=== PATIENT | male | born 1985 | race Hispanic/Latino ===

== ENCOUNTER 2018-03-01 14:24 | Emergency (ER) | payer SELFPAY ==
--- OUTSIDE RECORDS SUMMARY | 2018-03-01 14:26 | XMS REPORT | Encounter Summary ---
Author Author JENNIFFER Hopkins, Elin Whitfield Organization [facility] Address Unknown Phone Unavailable Care Team Providers Care Living Nurse Name Role Phone JENNIFFER Hopkins Melissa A Unavailable [facility] [id number] Conditions or Problems No information available. Medications Medication Instructions Start Date Stop Date Generic Name [facility] Provider PROAIR HFA AERS take 2 puffs by mouth BID/PRN asthma for 60 days NON KOP ALBUTEROL SULFATE AERS [id number] Elin Hopkins NP ATIVAN 1 MG TABS PRN Take 2 tablets po q 1 hr for agitation ,tremors,tachycardia(pulserate>=120) or diastolic bp>100mmHg NON KOP LORAZEPAM [id number] Elin Hopkins NP THIAMINE HCL 100 MG/ML SOLN If not able to tolerate tabs, Give 100 mg IM daily x 3 days NON-KOP THIAMINE HCL [id number] Elin Hopkins NP CHLORDIAZEPOXIDE HCL 25 MG CAPS Take 2 caps by mouth QID X 8 doses THEN 2 caps by mouth TID X 6 doses THEN 2 caps by mouth BID X 4 doses THEN 2 caps by mouth QD X 2 doses. NON-KOP CHLORDIAZEPOXIDE HCL [id number] Elin Hopkins NP THIAMINE HCL 100 MG TABS Take 1 tablet by mouth daily x 3 days NON-KOP THIAMINE HCL [id number] Elin Hopkins NP ATIVAN 2 MG/ML SOLN PRN 2 mg IM Q1 hours agitation, tremors, tachycardia (pulse rate greater than or equal to 120), or Diastolic blood pressure greater than 100mmHg X 4 days (96 hours)NONKOP LORAZEPAM [id number] Elin Hopkins NP Medications Administered No information available. Allergies, Adverse Reactions, Alerts Observed no known allergies at
--- OUTSIDE RECORDS SUMMARY | 2018-03-01 14:26 | XMS REPORT | Clinical Summary ---
Author Author [facility] Organization [facility] Address Unknown Phone Unavailable Care Team Providers Care Steam Hammer Operator Name Role Phone Asked, No Pcp PCP Unavailable Allergies No Known Allergies Current Medications No known medications Active Problems Not on file Encounters Date Type Specialty Care Team Description 12/26/2017 Emergency Emergency Medicine Kirt Suero Visit for wound check MD Reyes (Primary Dx) 12/21/2017 Emergency Emergency Medicine Luis Miguel Gonsalez, Encounter for post DO surgical wound check (Primary Dx); Burn after 02/28/2017 Social History Tobacco Use Types Packs/Day Years Used Date Current Every Day Smoker Cigarettes 0.5 Smokeless Tobacco: Never Used Alcohol Use Drinks/Week oz/Week Comments Yes Sex Assigned at Date Recorded Not on file Last Filed Vital Signs Vital Sign Reading Time Taken Blood Pressure 136/82 12/26/2017 1:06 PM CDT Pulse 92 12/26/2017 1:06 PM CDT Temperature 37.1 C (98.8 F) 12/26/2017 1:06 PM CDT Respiratory Rate 16 12/26/2017 1:06 PM CDT Oxygen Saturation 99% 12/26/2017 1:06 PM CDT Inhaled Oxygen - - Concentration Weight 63.5 kg (140 lb) 12/26/2017 11:05 AM CDT Height 172.7 cm (5' 8") 12/26/2017 11:05 AM CDT Body Mass Index 21.29 12/26/2017 11:05 AM CDT Plan of Treatment Not on file Results Not on fileafter 02/28/2017
--- OUTSIDE RECORDS SUMMARY | 2018-03-01 14:26 | XMS REPORT | Encounter Summary ---
Author Author ANNIE Richard Irene V Organization [facility] Address Unknown Phone Unavailable Care Team Providers Care Information Technology Analyst Name Role Phone JENNIFFER Hopkins, Elin Whitfield Unavailable [facility] 545314 Conditions or Problems No information available. Medications Medication Instructions Start Date Stop Date Generic Name [facility] Provider PROAIR HFA AERS take 2 puffs by mouth BID/PRN asthma for 60 days NON KOP ALBUTEROL SULFATE AERS [id number] Elin Hopkins NP ATIVAN 1 MG TABS PRN Take 2 tablets po q 1 hr for agitation ,tremors,tachycardia(pulserate>=120) or diastolic bp>100mmHg NON KOP LORAZEPAM [id number] Elin Hopkins NP THIAMINE HCL 100 MG/ML SOLN If not able to tolerate tabs, Give 100 mg IM daily x 3 days NON-KOP THIAMINE HCL [id number] Elin Hopkins NP CHLORDIAZEPOXIDE HCL 25 MG CAPS Take 2 caps by mouth QID X 8 doses THEN 2 caps by mouth TID X 6 doses THEN 2 caps by mouth BID X 4 doses THEN 2 caps by mouth QD X 2 doses. NON-KOP CHLORDIAZEPOXIDE HCL [id number] Elin Hopkins NP THIAMINE HCL 100 MG TABS Take 1 tablet by mouth daily x 3 days NON-KOP THIAMINE HCL [id number] Elin Hopkins NP ATIVAN 2 MG/ML SOLN PRN 2 mg IM Q1 hours agitation, tremors, tachycardia (pulse rate greater than or equal to 120), or Diastolic blood pressure greater than 100mmHg X 4 days (96 hours)NONKOP LORAZEPAM [id number] Elin Hopkins NP Medications Administered No information available. Allergies, Adverse Reactions, Alerts Observed no known allergies at
--- OUTSIDE RECORDS SUMMARY | 2018-03-01 14:27 | XMS REPORT ---
[facility] Address Unknown Phone Unavailable Care Team Providers Care Dye House Hand Name Role Phone Unavailable Unavailable Payers Payer Name Policy Type Policy Number Effective Date Expiration Date Problems This patient has no known problems. Allergies, Adverse Reactions, Alerts Allergy Name Allergy Type Status Severity Reaction(s) Onset Date Inactive Date Treating Clinician Comments No Known Allergies DA Active U 2018-01-12 00:00:00 No Known Allergies DA Active U 2018-01-08 00:00:00 No Known Allergies DA Active U 2018-01-03 00:00:00 No Known Allergies DA Active U 2017-12-24 00:00:00 No Known Allergies DA Active U 2016-04-09 00:00:00 Medications This patient has no known medications. Encounters Start Date/Time End Date/Time Encounter Type Admission Type Attending [facility] Care Facility Care Department Encounter ID 2017-08-30 00:00:00 2017-11-25 00:00:00 Outpatient [facility] [id number] 2017-11-03 12:21:01 2017-11-03 12:21:01 Outpatient [facility] [id number] 2017-08-27 00:00:00 2017-08-28 00:00:00 Outpatient [facility] [id number] 2017-07-28 00:00:00 2017-07-31 00:00:00 Outpatient [facility] [id number] 2017-03-01 00:00:00 2017-03-02 00:00:00 Outpatient [facility] [id number] 2017-02-22 00:00:00 2017-02-23 00:00:00 [facility] [id number] 2016-10-16 00:00:00 2017-02-15 00:00:00 [facility] [id number] 2016-10-07 00:00:00 2016-10-11 00:00:00 [facility] [id number] 2016-09-30 00:00:00 2016-09-30 00:00:00 [facility] [id number] 2016-09-19 00:00:00 2016-09-26 00:00:00 [facility] [id number] 2016-09-14 00:00:00 2016-09-16 00:00:00 [facility] [id number] 2016-08-27 00:00:00 2016-09-08 00:00:00 [facility] [id number]
--- OUTSIDE RECORDS SUMMARY | 2018-03-01 14:27 | XMS REPORT | Encounter Summary ---
Author Author ANNIE Esquivel, [employer] Organization [facility] Address Unknown Phone Unavailable Care Team Providers Care Methods Specialist Engineer Name Role Phone Onemu, INSTANT PRINT OPERATOR, Marisabel O Unavailable [facility] [id number] Conditions or Problems No information available. Medications Medication Instructions Start Date Stop Date Generic Name [facility] Provider IBUPROFEN 800 MG TABS Take 1 tablet by mouth twice a day for 30 days. N-KOP IBUPROFEN [id number] Marisabel O Onemu, INSTANT PRINT OPERATOR CHLORDIAZEPOXIDE HCL 25 MG CAPS Take 1 capsule by mouth twice daily X 2 days THEN 1 capsule by mouth once daily X 3 days CHLORDIAZEPOXIDE HCL [id number] Marisabel O Onemu, INSTANT PRINT OPERATOR LOPERAMIDE HCL 2 MG CAPS Take 2 capsules (4mg) by mouth twice daily X 3 days NON-KOP LOPERAMIDE HCL [id number] Marisabel O Onemu, INSTANT PRINT OPERATOR DILANTIN 100 MG CAPS Take 3 capsules by mouth qPM x 30 days N-KOP PHENYTOIN SODIUM EXTENDED [id number] Marisabel O Onemu, INSTANT PRINT OPERATOR PROAIR HFA AERS take 2 puffs by mouth BID/PRN asthma for 60 days Rx waiting. KOP ALBUTEROL SULFATE AERS [id number] Marisabel O Onemu, INSTANT PRINT OPERATOR ZYRTEC ALLERGY 10 MG TABS Take 1 tablet by mouth daily x 30 days. N-KOP CETIRIZINE HCL [id number] Marisabel O Onemu, INSTANT PRINT OPERATOR PROMETHAZINE HCL 25 MG TABS Take 1 tablet by mouth twice daily X 3 days NON-KOP PROMETHAZINE HCL [id number] Marisabel O Onemu, INSTANT PRINT OPERATOR Medications Administered No information available. Allergies, Adverse Reactions, Alerts No information available.
--- OUTSIDE RECORDS SUMMARY | 2018-03-01 14:27 | XMS REPORT | Encounter Summary ---
Author Author ANNIE Mendez Dawn M Organization [facility] Address [address] [facility] ([address]) [place] [address] Phone Care Team Providers Care Green Energy Marketing Analyst Name Role Phone JENNIFFER Nevarez, Cary Frances [facility] [id number] Conditions or Problems No information available. Medications Medication Instructions Start Date Stop Date Generic Name [facility] Provider DILANTIN 100 MG CAPS Take 3 capsules by mouth qPM x 30 days non kop PHENYTOIN SODIUM EXTENDED [id number] Cary Nevarez NP Medications Administered No information available. Allergies, Adverse Reactions, Alerts Observed no known allergies at
--- OUTSIDE RECORDS SUMMARY | 2018-03-01 14:27 | XMS REPORT | Encounter Summary ---
Author Author ANNIE Rosas Taren C. Organization [facility] Address [address] [facility] ([address]) [place] [address] Phone Care Team Providers Care Business Unit Director Name Role Phone JENNIFFER Nevarez, Cary Frances [facility] [id number] Conditions or Problems No information available. Medications Medication Instructions Start Date Stop Date Generic Name [facility] Provider DILANTIN 100 MG CAPS Take 3 capsules by mouth qPM x 30 days non kop PHENYTOIN SODIUM EXTENDED [id number] Cary Nevarez NP Medications Administered No information available. Allergies, Adverse Reactions, Alerts Observed no known allergies at
--- OUTSIDE RECORDS SUMMARY | 2018-03-01 14:27 | XMS REPORT | Encounter Summary ---
Author Author Jurado, Tower Watch[employer] [facility] Address [address] [facility] ([address]) [place] [address] Phone Care Team Providers Care Sales Service Supervisor Name Role Phone JENNIFFER Nevarez, Cary Frances [facility] [id number] Conditions or Problems No information available. Medications Medication Instructions Start Date Stop Date Generic Name [facility] Provider DILANTIN 100 MG CAPS Take 3 capsules by mouth qPM x 30 days non kop PHENYTOIN SODIUM EXTENDED [id number] Cary Nevarez NP Medications Administered No information available. Allergies, Adverse Reactions, Alerts Observed no known allergies at
--- OUTSIDE RECORDS SUMMARY | 2018-03-01 14:27 | XMS REPORT | Encounter Summary ---
Author Author ANNIE Chance Raquel L Organization [facility] Address [address] [place] [address] Phone Care Team Providers Care Electrolysis Operator Name Role Phone JENNIFFER Hopkins, Elin Whitfield [facility] [id number] Conditions or Problems No information available. Medications Medication Instructions Start Date Stop Date Generic Name [facility] Provider PROAIR HFA AERS take 2 puffs by mouth BID/PRN asthma for 60 days NON KOP ALBUTEROL SULFATE AERS [id number] Elin Hopkins NP ATIVAN 1 MG TABS PRN Take 2 tablets po q 1 hr for agitation ,tremors,tachycardia(pulserate>=120) or diastolic bp>100mmHg NON KOP LORAZEPAM [id number] Elin Hopkins NP THIAMINE HCL 100 MG/ML SOLN If not able to tolerate tabs, Give 100 mg IM daily x 3 days NON-KOP THIAMINE HCL [id number] Elin Hopkins NP CHLORDIAZEPOXIDE HCL 25 MG CAPS Take 2 caps by mouth QID X 8 doses THEN 2 caps by mouth TID X 6 doses THEN 2 caps by mouth BID X 4 doses THEN 2 caps by mouth QD X 2 doses. NON-KOP CHLORDIAZEPOXIDE HCL [id number] Elin Hopkins NP THIAMINE HCL 100 MG TABS Take 1 tablet by mouth daily x 3 days NON-KOP THIAMINE HCL [id number] Elin Hopkins NP ATIVAN 2 MG/ML SOLN PRN 2 mg IM Q1 hours agitation, tremors, tachycardia (pulse rate greater than or equal to 120), or Diastolic blood pressure greater than 100mmHg X 4 days (96 hours)NONKOP LORAZEPAM [id number] Elin Hopkins, JENNIFFER Medications Administered No information available. Allergies, Adverse Reactions, Alerts Observed no known allergies at
--- OUTSIDE RECORDS SUMMARY | 2018-03-01 14:27 | XMS REPORT | Encounter Summary ---
Author Author Roque NP, Cary Frances Organization [facility] Address [address] [facility] ([address]) [place] [address] Phone Care Team Providers Care Timber Surveyor Name Role Phone JENNIFFER Nevarez Sonya M [facility] [id number] Conditions or Problems No information available. Medications Medication Instructions Start Date Stop Date Generic Name [facility] Provider DILANTIN 100 MG CAPS Take 3 capsules by mouth qPM x 30 days non kop PHENYTOIN SODIUM EXTENDED [id number] Cary Nevarez NP Medications Administered No information available. Allergies, Adverse Reactions, Alerts Observed no known allergies at
--- OUTSIDE RECORDS SUMMARY | 2018-03-01 14:27 | XMS REPORT | Encounter Summary ---
Author Author ANNIE Esquivel, [employer] Organization [facility] Address Unknown Phone Unavailable Care Team Providers Care Loan Documentation Specialist Name Role Phone Onemu, DIRECTOR CASE MANAGEMENT, Marisabel O Unavailable [facility] [id number] Conditions or Problems No information available. Medications Medication Instructions Start Date Stop Date Generic Name [facility] Provider IBUPROFEN 800 MG TABS Take 1 tablet by mouth twice a day for 30 days. N-KOP IBUPROFEN [id number] Marisabel O Onemu, DIRECTOR CASE MANAGEMENT CHLORDIAZEPOXIDE HCL 25 MG CAPS Take 1 capsule by mouth twice daily X 2 days THEN 1 capsule by mouth once daily X 3 days CHLORDIAZEPOXIDE HCL [id number] Marisabel O Onemu, DIRECTOR CASE MANAGEMENT LOPERAMIDE HCL 2 MG CAPS Take 2 capsules (4mg) by mouth twice daily X 3 days NON-KOP LOPERAMIDE HCL [id number] Marisabel O Onemu, DIRECTOR CASE MANAGEMENT DILANTIN 100 MG CAPS Take 3 capsules by mouth qPM x 30 days N-KOP PHENYTOIN SODIUM EXTENDED [id number] Marisabel O Onemu, DIRECTOR CASE MANAGEMENT PROAIR HFA AERS take 2 puffs by mouth BID/PRN asthma for 60 days Rx waiting. KOP ALBUTEROL SULFATE AERS [id number] Marisabel O Onemu, DIRECTOR CASE MANAGEMENT ZYRTEC ALLERGY 10 MG TABS Take 1 tablet by mouth daily x 30 days. N-KOP CETIRIZINE HCL [id number] Marisabel O Onemu, DIRECTOR CASE MANAGEMENT PROMETHAZINE HCL 25 MG TABS Take 1 tablet by mouth twice daily X 3 days NON-KOP PROMETHAZINE HCL [id number] Marisabel O Onemu, DIRECTOR CASE MANAGEMENT Medications Administered No information available. Allergies, Adverse Reactions, Alerts No information available.
--- OUTSIDE RECORDS SUMMARY | 2018-03-01 14:27 | XMS REPORT | Encounter Summary ---
Author Author ANNIE Richard Irene V Organization [facility] Address Unknown Phone Unavailable Care Team Providers Care Front End Web Designer Name Role Phone JENNIFFER Hopkins, Elin Whitfield Unavailable [facility] [id number] Conditions or Problems No information available. Medications Medication Instructions Start Date Stop Date Generic Name [facility] Provider PROAIR HFA AERS take 2 puffs by mouth BID/PRN asthma for 60 days NON KOP ALBUTEROL SULFATE AERS [id number] Elin Hopkins NP ATIVAN 1 MG TABS PRN Take 2 tablets po q 1 hr for agitation ,tremors,tachycardia(pulserate>=120) or diastolic bp>100mmHg NON KOP LORAZEPAM [id number] Elin Hopkins NP THIAMINE HCL 100 MG/ML SOLN If not able to tolerate tabs, Give 100 mg IM daily x 3 days NON-KOP THIAMINE HCL [id number] Elin Hopkins NP CHLORDIAZEPOXIDE HCL 25 MG CAPS Take 2 caps by mouth QID X 8 doses THEN 2 caps by mouth TID X 6 doses THEN 2 caps by mouth BID X 4 doses THEN 2 caps by mouth QD X 2 doses. NON-KOP CHLORDIAZEPOXIDE HCL [id number] Elin Hopkins NP THIAMINE HCL 100 MG TABS Take 1 tablet by mouth daily x 3 days NON-KOP THIAMINE HCL [id number] Elin Hopkins NP ATIVAN 2 MG/ML SOLN PRN 2 mg IM Q1 hours agitation, tremors, tachycardia (pulse rate greater than or equal to 120), or Diastolic blood pressure greater than 100mmHg X 4 days (96 hours)NONKOP LORAZEPAM [id number] Elin Hopkins NP Medications Administered No information available. Allergies, Adverse Reactions, Alerts Observed no known allergies at
--- OUTSIDE RECORDS SUMMARY | 2018-03-01 14:27 | XMS REPORT | Encounter Summary ---
Author Author Arias, Director [employer] [facility] Address [address] [facility] ([address]) [place] [address] Phone Care Team Providers Care Matrix Inspector Name Role Phone Onemu, CORPORATE CONTROLLER, Marisabel O Unavailable [facility] [id number] Conditions or Problems No information available. Medications Medication Instructions Start Date Stop Date Generic Name [facility] Provider IBUPROFEN 800 MG TABS Take 1 tablet by mouth twice a day for 30 days. N-KOP IBUPROFEN [id number] Marisabel O Ajay, CORPORATE CONTROLLER CHLORDIAZEPOXIDE HCL 25 MG CAPS Take 1 capsule by mouth twice daily X 2 days THEN 1 capsule by mouth once daily X 3 days CHLORDIAZEPOXIDE HCL [id number] Marisabel O Ajay, CORPORATE CONTROLLER LOPERAMIDE HCL 2 MG CAPS Take 2 capsules (4mg) by mouth twice daily X 3 days NON-KOP LOPERAMIDE HCL [id number] Marisabel O Ajay, CORPORATE CONTROLLER DILANTIN 100 MG CAPS Take 3 capsules by mouth qPM x 30 days N-KOP PHENYTOIN SODIUM EXTENDED [id number] Marisabel O Ajay CORPORATE CONTROLLER PROAIR HFA AERS take 2 puffs by mouth BID/PRN asthma for 60 days Rx waiting. KOP ALBUTEROL SULFATE AERS [id number] Marisabel O Ajay CORPORATE CONTROLLER ZYRTEC ALLERGY 10 MG TABS Take 1 tablet by mouth daily x 30 days. N-KOP CETIRIZINE HCL [id number] Marisabel O Ajay, CORPORATE CONTROLLER PROMETHAZINE HCL 25 MG TABS Take 1 tablet by mouth twice daily X 3 days NON-KOP PROMETHAZINE HCL [id number] Marisabel O Onemu, CORPORATE CONTROLLER Medications Administered No information available. Allergies, Adverse Reactions, Alerts No information available.
--- OUTSIDE RECORDS SUMMARY | 2018-03-01 14:27 | XMS REPORT | Encounter Summary ---
Author Author ANNIE Burnham, Evie Organization [facility] Address Unknown Phone Unavailable Care Team Providers Care Owner Operator Tanker Truck Driver Name Role Phone JENNIFFER Hopkins, Elin Whitfield Unavailable [facility] [id number] Conditions or Problems No information available. Medications Medication Instructions Start Date Stop Date Generic Name [facility] Provider PROAIR HFA AERS take 2 puffs by mouth BID/PRN asthma for 60 days NON KOP ALBUTEROL SULFATE AERS [id number] Elin Hopkins NP ATIVAN 1 MG TABS PRN Take 2 tablets po q 1 hr for agitation ,tremors,tachycardia(pulserate>=120) or diastolic bp>100mmHg NON KOP LORAZEPAM [id number] Elin Hopkins NP THIAMINE HCL 100 MG/ML SOLN If not able to tolerate tabs, Give 100 mg IM daily x 3 days NON-KOP THIAMINE HCL [id number] Elin Hopkins NP CHLORDIAZEPOXIDE HCL 25 MG CAPS Take 2 caps by mouth QID X 8 doses THEN 2 caps by mouth TID X 6 doses THEN 2 caps by mouth BID X 4 doses THEN 2 caps by mouth QD X 2 doses. NON-KOP CHLORDIAZEPOXIDE HCL [id number] Elin Hopkins NP THIAMINE HCL 100 MG TABS Take 1 tablet by mouth daily x 3 days NON-KOP THIAMINE HCL [id number] Elin Hopkins NP ATIVAN 2 MG/ML SOLN PRN 2 mg IM Q1 hours agitation, tremors, tachycardia (pulse rate greater than or equal to 120), or Diastolic blood pressure greater than 100mmHg X 4 days (96 hours)NONKOP LORAZEPAM [id number] Elin Hopkins NP Medications Administered No information available. Allergies, Adverse Reactions, Alerts Observed no known allergies at
--- OUTSIDE RECORDS SUMMARY | 2018-03-01 14:27 | XMS REPORT | Encounter Summary ---
Author Author ANNIE Velazquez, Vandana Organization [facility] Address [address] [place] [address] Phone Care Team Providers Care Glass Production Machine Operator Name Role Phone JENNIFFER Hopkins, Elin Whitfield [facility] [id number] Conditions or Problems No information available. Medications Medication Instructions Start Date Stop Date Generic Name [facility] Provider PROAIR HFA AERS take 2 puffs by mouth BID/PRN asthma for 60 days NON KOP ALBUTEROL SULFATE AERS [id number] Elin Hopkins NP ATIVAN 1 MG TABS PRN Take 2 tablets po q 1 hr for agitation ,tremors,tachycardia(pulserate>=120) or diastolic bp>100mmHg NON KOP LORAZEPAM [id number] Elin Hopkins NP THIAMINE HCL 100 MG/ML SOLN If not able to tolerate tabs, Give 100 mg IM daily x 3 days NON-KOP THIAMINE HCL [id number] Elin Hopkins NP CHLORDIAZEPOXIDE HCL 25 MG CAPS Take 2 caps by mouth QID X 8 doses THEN 2 caps by mouth TID X 6 doses THEN 2 caps by mouth BID X 4 doses THEN 2 caps by mouth QD X 2 doses. NON-KOP CHLORDIAZEPOXIDE HCL [id number] Elin Hopkins NP THIAMINE HCL 100 MG TABS Take 1 tablet by mouth daily x 3 days NON-KOP THIAMINE HCL [id number] Elin Hopkins NP ATIVAN 2 MG/ML SOLN PRN 2 mg IM Q1 hours agitation, tremors, tachycardia (pulse rate greater than or equal to 120), or Diastolic blood pressure greater than 100mmHg X 4 days (96 hours)NONKOP LORAZEPAM [id number] Elin Hopkins, JENNIFFER Medications Administered No information available. Allergies, Adverse Reactions, Alerts Observed no known allergies at
--- OUTSIDE RECORDS SUMMARY | 2018-03-01 14:27 | XMS REPORT | Encounter Summary ---
Author Author ANNIE Veloz Anniekenn W Organization [facility] Address [address] [facility] ([address]) [place] [address] Phone Care Team Providers Care Lawn Care Specialist Name Role Phone Onemu, REWORK OPERATOR, Marisabel O Unavailable [facility] [id number] Conditions or Problems No information available. Medications Medication Instructions Start Date Stop Date Generic Name [facility] Provider IBUPROFEN 800 MG TABS Take 1 tablet by mouth twice a day for 30 days. N-KOP IBUPROFEN [id number] Marisabel O Ajay, REWORK OPERATOR CHLORDIAZEPOXIDE HCL 25 MG CAPS Take 1 capsule by mouth twice daily X 2 days THEN 1 capsule by mouth once daily X 3 days CHLORDIAZEPOXIDE HCL [id number] Marisabel O Ajay, REWORK OPERATOR LOPERAMIDE HCL 2 MG CAPS Take 2 capsules (4mg) by mouth twice daily X 3 days NON-KOP LOPERAMIDE HCL [id number] Marisabel O Ajay, REWORK OPERATOR DILANTIN 100 MG CAPS Take 3 capsules by mouth qPM x 30 days N-KOP PHENYTOIN SODIUM EXTENDED [id number] Marisabel O Ajay REWORK OPERATOR PROAIR HFA AERS take 2 puffs by mouth BID/PRN asthma for 60 days Rx waiting. KOP ALBUTEROL SULFATE AERS [id number] Marisabel O Ajay, REWORK OPERATOR ZYRTEC ALLERGY 10 MG TABS Take 1 tablet by mouth daily x 30 days. N-KOP CETIRIZINE HCL [id number] Marisabel O Ajay, REWORK OPERATOR PROMETHAZINE HCL 25 MG TABS Take 1 tablet by mouth twice daily X 3 days NON-KOP PROMETHAZINE HCL [id number] Marisabel Moss NP Medications Administered No information available. Allergies, Adverse Reactions, Alerts No information available.
--- OUTSIDE RECORDS SUMMARY | 2018-03-01 14:27 | XMS REPORT | Encounter Summary ---
Author Author Beck RN, Lena Marie Organization [facility] Address [address] [place] [address] Phone Care Team Providers Care Rn Testing Name Role Phone JENNIFFER Hopkins, Elin Whitfield [facility] [id number] Conditions or Problems No information available. Medications Medication Instructions Start Date Stop Date Generic Name [facility] Provider PROAIR HFA AERS take 2 puffs by mouth BID/PRN asthma for 60 days NON KOP ALBUTEROL SULFATE AERS [id number] Elin Hopkins NP ATIVAN 1 MG TABS PRN Take 2 tablets po q 1 hr for agitation ,tremors,tachycardia(pulserate>=120) or diastolic bp>100mmHg NON KOP LORAZEPAM [id number] Elin Hopkins NP THIAMINE HCL 100 MG/ML SOLN If not able to tolerate tabs, Give 100 mg IM daily x 3 days NON-KOP THIAMINE HCL [id number] Elin Hopkins NP CHLORDIAZEPOXIDE HCL 25 MG CAPS Take 2 caps by mouth QID X 8 doses THEN 2 caps by mouth TID X 6 doses THEN 2 caps by mouth BID X 4 doses THEN 2 caps by mouth QD X 2 doses. NON-KOP CHLORDIAZEPOXIDE HCL [id number] Elin Hopkins NP THIAMINE HCL 100 MG TABS Take 1 tablet by mouth daily x 3 days NON-KOP THIAMINE HCL [id number] Elin Hopkins NP ATIVAN 2 MG/ML SOLN PRN 2 mg IM Q1 hours agitation, tremors, tachycardia (pulse rate greater than or equal to 120), or Diastolic blood pressure greater than 100mmHg X 4 days (96 hours)NONKOP LORAZEPAM [id number] Elin Hopkins, JENNIFFER Medications Administered No information available. Allergies, Adverse Reactions, Alerts Observed no known allergies at
== END 2018-03-01 16:03 | disposition left against medical advice (07) ==
LOC: ER 14:24
DX: T86.822 Skin graft (allograft) (autograft) infection (principal)